=== PATIENT | female | born 1975 | race Caucasian/White ===

== ENCOUNTER 2021-05-24 08:23 | Emergency (ER) | payer BC ==
[~2021-05-24] VITALS: Ht 167.6 cm; Wt 87.4 kg
[~2021-05-24 08:23] MED LIST: AMOXICILLIN500 MG PO; AUGMENTIN875TAB PO; DEPO-PROVER150 MG/ML IM; FLONASE NASAL50 MCG; LOESTRIN 24 FE PO; LORTAB 7.57.5 MG PO; PHENERGAN25 MG/TAB PO; ULTRAM50 M1 PO; ULTRAM50 MG PO; ZOLOFT100 MG PO; ZYRTEC10 M3 PO; ZYRTEC10 MG PO; [UNRECOGNIZED DRUG - MIXTURE] AD
[2021-05-24 09:01] LABS: HEMATOCRIT 42.4 % (37.0-47.0); HEMOGLOBIN 13.7 g/dl (12.0-16.0); IMMATURE GRANULOCYTES 0.4 % (0.0-5.0); MEAN CELL VOLUME 90.6 fL CALC (80.0-100.0); MEAN CORPUSCULAR HGB 29.3 pG CALC (26.0-32.0); MEAN CORPUSCULAR HGB CONC 32.3 g/dL CAL (32.0-36.0); NEUT# 4.63 thou/uL (2.00-7.15); RED BLOOD COUNT 4.68 mill/uL (4.20-5.60); RED CELL DISTRI WIDTH 11.8 % (11.5-15.5)
[2021-05-24 09:19] LABS: ALBUMIN 4.5 g/dL (3.2-5.0); ALKALINE PHOSPHATASE 88 u/l (38-126); ANION GAP 12 (6-22 (CALC)); BILIRUBIN, TOTAL 0.5 mg/dL (0.0-1.4); BUN 10 mg/dL (7-17); BUN/CREATININE RATIO 11 (12-20 (CALC)); CARBON DIOXIDE 27 mmol/l (22-30); CHLORIDE 102 mmol/l (95-108); CREATININE 0.8 mg/dL (0.5-1.0); ETHYL ALCOHOL 0 mg/dl (0-30); GFR > 60 ML/MIN (>=60 (CALC)); GFR FOR AFR.AMER. > 60 ML/MIN (>=60 (CALC)); LIPASE 52 u/l (23-300); SGOT/AST 30 u/l (14-36); SODIUM 137 mmol/l (137-146); TOTAL PROTEIN 7.6 g/dL (6.3-8.2)
[2021-05-24 09:24] LABS: ACT PARTIAL THROMBO TIME 24.1 SECONDS (20.0-32.5); INTERNATIONAL NORMALIZED RATIO 0.9 RATIO (0.7-1.3); PROTHROMBIN TIME 9.7 SECONDS (9.0-12.5)
[2021-05-24 11:01] VITALS: BP 160/96
== END 2021-05-24 11:07 | disposition home or self-care (01) | DRG 948 ==
LOC: ED 08:23
DX: R53.1 Weakness (principal); R42 Dizziness and giddiness; R20.8 Other disturbances of skin sensation; G43.909 Migraine, unspecified, not intractable, without status migrainosus
CPT/HCPCS: Q9967